=== PATIENT | male | born 1965 | race Asian ===

== ENCOUNTER 2017-02-26 07:47 | Emergency (ER) | payer BC ==
[2017-02-26 09:43] VITALS: BP 124/66
--- NOTE | 2017-02-26 18:47 | ED ---
Asif Lopez Angela, scribed for Julito Be MD on 02/26/17 at 0758 . Lower Extremity - HPI Summary HPI Summary: This pt is a 51 y/o male [facility] c/o bleeding from his left lower leg today. Pt reports that he woke up this morning to go to the bathroom when he noticed bleeding from a wound in his left leg. Pt states "the blood was shooting out in a straight line." He notes that surgicel type of dressing was placed on his leg and pressure was applied to stop the bleeding. Currently his bleeding is controlled. There are no aggravating factors. Pt denies any pain. He notes losing a lot of weight recently and is recovering from a back injury for the past 7 years. - History of Current Complaint Chief Complaint: EDExtremityLower Stated Complaint: LEG WOUND Time Seen by Provider: 02/26/17 07:50 Hx Obtained From: Patient Mechanism Of Injury: Other - none Onset/Duration: Hours Pain Intensity: 0 - no pain Pain Scale Used: 0-10 Numeric Timing: Lasting Minutes Location: Is Discrete @ - left lower leg Associated Signs And Symptoms: Negative: Swelling, Redness, Bruising Aggravating Factor(s): Nothing Alleviating Factor(s): Other - pressure Able to Bear Weight: Yes - Allergies/Home Medications Allergies/Adverse Reactions: Allergies Allergy/AdvReac Type Severity Reaction Status Date / Time No Known Allergies Allergy Verified 02/26/17 07:56 Home Medications: Home Medications Acetaminophen TAB* [Tylenol TAB*] 2 tab PO TID PRN 02/26/17 [History Confirmed 02/26/17] Carisoprodol TAB* [Soma TAB*] 2 tab PO Q4H PRN 02/26/17 [History Confirmed ] PMH/Surg Hx/FS Hx/Imm Hx Endocrine/Hematology History: Denies: Hx Diabetes Cardiovascular History: Denies: Hx Congestive Heart Failure, Hx Hypertension, Hx Pacemaker/ICD Respiratory History: Reports: Hx Sleep Apnea - evaluation for 07/2013 History: Denies: Hx Dialysis, Hx Renal Disease Musculoskeletal History: Reports: Hx Back Problems - chronic back pain, Hx Orthopedic Injury - fell 4 yrs ago onto back (Dr. Merrill), Other Musculoskeletal History - morbid obesity Sensory History: Reports: Hx Contacts or Glasses Denies: Hx Hearing Aid Opthamlomology History: Reports: Hx Contacts or Glasses Neurological History: Denies: Other Neuro Impairments/Disorders - DENIES Psychiatric History: Reports: Hx Depression - meds Denies: Hx Panic Disorder - Surgical History Surgery Procedure, Year, and Place: [place] TONSILS REMOVED X 2 CHILD, CYSTS REMOVED FROM NASAL AREA 05/11 Hx Anesthesia Reactions: No Infectious Disease History: No Infectious Disease History: Denies: Traveled Outside the [place] in Last 30 Days - Family History Known Family History: Positive: Diabetes Negative: Cardiac Disease - Social History Alcohol Use: Occasionally Substance Use Type: Reports: None Smoking Status (MU): Former Smoker Review of Systems Negative: Fever, Chills Eyes: Negative ENT: Negative Negative: Arthralgia, Other - pain in LLE Positive: Other - bleeding from left lower leg All Other Systems Reviewed And Are Negative: Yes Physical Exam - Summary Physical Exam Summary: VITAL SIGNS: Reviewed. GENERAL: Patient is an obese male who is lying comfortable in the stretcher. Patient is not in any acute respiratory distress. HEAD AND FACE: No signs of trauma. No ecchymosis, hematomas or skull depressions. No sinus tenderness. EYES: PERRLA, EOMI x 2, No injected conjunctiva, no nystagmus. EARS: Hearing grossly intact. Ear canals and tympanic membranes are within normal limits. MOUTH: Oropharynx within normal limits. NECK: Supple, trachea is midline, no adenopathy, no JVD, no carotid bruit, no c- spine tenderness, neck with full ROM. CHEST: Symmetric, no tenderness at palpation LUNGS: Clear to auscultation bilaterally. No wheezing or crackles. CVS: Regular rate and rhythm, S1 and S2 present, no murmurs or gallops appreciated. ABDOMEN: Soft, non-tender. No signs of distention. No rebound no guarding, and no masses palpated. Bowel sounds are normal. EXTREMITIES: FROM in all major joints, no edema, no cyanosis or clubbing. LLE: arterial bleed which is controlled with hemostasis. NEURO: Alert and oriented x 3. No acute neurological deficits. Speech is normal and follows commands. SKIN: Dry and warm Triage Information Reviewed: Yes Vital Signs On Initial Exam: Initial Vitals Temp Pulse Resp BP Pulse Ox 97.9 F 85 20 128/93 96 02/26/17 07:50 02/26/17 07:50 02/26/17 07:50 02/26/17 07:50 02/26/17 07:50 Vital Signs Reviewed: Yes Diagnostics - Vital Signs Vital Signs Temp Pulse Resp BP Pulse Ox 02/26/17 07:50 97.9 F 85 20 128/93 96 - Laboratory Lab Statement: Any lab studies that have been ordered have been reviewed, and results considered in the medical decision making process. Lower Extremity Course/Dx - Course Assessment/Plan: This pt is a 51 y/o male presenting to [facility] c/o bleeding from his left lower leg today. Pt reports that he woke up this morning to go to the bathroom when he noticed bleeding from a wound in his left leg. Pt states "the blood was shooting out in a straight line." He notes that surgicel type of dressing was placed on his leg and pressure was applied to stop the bleeding. Currently his bleeding is controlled. There are no aggravating factors. Pt denies any pain. He notes losing a lot of weight recently and is recovering from a back injury for the past 7 years. Arterial bleed is contained, there is on active bleeding. Pt is discharged home with follow up from his PCP. Pt is hemodynamically stable, alert and oriented x3. - Diagnoses Differential Diagnosis/HQI/PQRI: Positive: Bursitis, Cellulitis, Sprain, Strain , Tendonitis Provider Diagnoses: arterial bleed Discharge - Discharge Plan Condition: Stable Disposition: HOME Forms: *Work Release Referrals: Irineo Martines MD [Primary Care Provider] - Additional Instructions: Please follow up with your primary care provider. RETURN TO THE ED FOR ANY NEW OR WORSENING SYMPTOMS. The documentation as recorded by the Asif coronel Angela accurately reflects the service I personally performed and the decisions made by me, Julito Be MD.
== END 2017-02-26 09:42 | disposition home or self-care (01) ==
LOC: ED 07:47
DX: S81.802A Unspecified open wound, left lower leg, initial encounter (principal); X58.XXXA Exposure to other specified factors, initial encounter; Y93.9 Activity, unspecified; Y92.9 Unspecified place or not applicable; Z87.891 Personal history of nicotine dependence
CPT/HCPCS: 99283

== ENCOUNTER 2019-06-18 13:41 | Emergency (ER) | payer BC, MEDICAID, OTHER ==
--- NOTE | 2019-06-18 14:09 | ED ---
Throat Pain/Nasal Congestion - HPI Summary HPI Summary: Patient is a 53 y/o M presenting to the ED for a chief complaint of dental pain. - History of Current Complaint Chief Complaint: EDDentalPain Time Seen by Provider: 06/18/19 14:06 Hx Obtained From: Patient - Allergies/Home Medications Allergies/Adverse Reactions: Allergies Allergy/AdvReac Type Severity Reaction Status Date / Time No Known Allergies Allergy Verified 06/18/19 13:46 Home Medications: Home Medications Percocet 5/325 TAB* 5 mg PO Q6HR PRN 04/09/12 [History Confirmed 02/26/17] Albuterol Sulfate [Proventil Hfa] 2 puff IN Q4HR PRN 07/29/13 [History Confirmed 02/26/17] Acetaminophen TAB* [Tylenol TAB*] 2 tab PO TID PRN 02/26/17 [History Confirmed 02/26/17] Carisoprodol TAB* [Soma TAB*] 2 tab PO Q4H PRN 02/26/17 [History Confirmed ] PMH/Surg Hx/FS Hx/Imm Hx Previously Healthy: Yes Endocrine/Hematology History: Denies: Hx Diabetes Cardiovascular History: Denies: Hx Congestive Heart Failure, Hx Hypertension, Hx Pacemaker/ICD Respiratory History: Reports: Hx Sleep Apnea - evaluation for 07/2013 History: Denies: Hx Dialysis, Hx Renal Disease Musculoskeletal History: Reports: Hx Back Problems - chronic back pain, Hx Orthopedic Injury - fell 4 yrs ago onto back (Dr. Merrill), Other Musculoskeletal History - morbid obesity Sensory History: Reports: Hx Contacts or Glasses Denies: Hx Hearing Aid Opthamlomology History: Reports: Hx Contacts or Glasses Neurological History: Denies: Other Neuro Impairments/Disorders - DENIES Psychiatric History: Reports: Hx Depression - meds Denies: Hx Panic Disorder - Surgical History Surgery Procedure, Year, and Place: [place] TONSILS REMOVED X 2 CHILD, CYSTS REMOVED FROM NASAL AREA 05/11 Hx Anesthesia Reactions: No Infectious Disease History: No Infectious Disease History: Denies: Traveled Outside the [place] in Last 30 Days - Family History Known Family History: Positive: Diabetes Negative: Cardiac Disease - Social History Alcohol Use: Occasionally Substance Use Type: Reports: None Smoking Status (MU): Former Smoker Review of Systems All Other Systems Reviewed And Are Negative: Yes Physical Exam Triage Information Reviewed: Yes Vital Signs On Initial Exam: Initial Vitals Temp Pulse Resp BP Pulse Ox 97.5 F 83 16 189/108 96 06/18/19 13:43 06/18/19 13:43 06/18/19 13:43 06/18/19 13:43 06/18/19 13:43 Vital Signs Reviewed: Yes Procedures - Sedation Patient Received Moderate/Deep Sedation with Procedure: No Diagnostics - Vital Signs Vital Signs Temp Pulse Resp BP Pulse Ox 06/18/19 13:43 97.5 F 83 16 189/108 96 - Laboratory Lab Statement: Any lab studies that have been ordered have been reviewed, and results considered in the medical decision making process. Discharge ED - Discharge Plan Referrals: Darron ANDERSON,Honorio Zepeda [Primary Care Provider] - - Attestation Statements Document Initiated by Scribe: Yes Documenting Scribe: Lupe Busch
[2019-06-18] MEDS ORDERED: traMADol TAB* 50 MG PO ONE (15:15)
[2019-06-18 15:29] VITALS: BP 189/90
--- NOTE | 2019-06-19 06:37 | ED ---
Throat Pain/Nasal Congestion - HPI Summary HPI Summary: This patient is a 53-year-old obese male presenting to the ED with chief complaint of dental pain. He is endorsing pain just behind the front teeth, #8 and 9. He states he feels he got a piece of a popcorn kernel stuck to this area last week and since then he has been having pain. After a few days, he thinks the area may have drained somewhat improved, however now the area is very sore and tender and he is noticing slightly loosening of the 2 front teeth. He has been denying any fevers, sweats, chills. He currently does not have a PCP or a dentist. Denies any difficulty with chewing or swallowing. - History of Current Complaint Chief Complaint: EDDentalPain Time Seen by Provider: 06/18/19 14:06 Hx Obtained From: Patient Onset/Duration: Sudden Onset Severity: Severe Associated Signs And Symptoms: Positive: Negative - Epiglottits Risk Factors Epiglottis Risk Factors: Negative - Allergies/Home Medications Allergies/Adverse Reactions: Allergies Allergy/AdvReac Type Severity Reaction Status Date / Time No Known Allergies Allergy Verified 06/18/19 13:46 Home Medications: Home Medications Percocet 5/325 TAB* 5 mg PO Q6HR PRN 04/09/12 [History Confirmed 02/26/17] Albuterol Sulfate [Proventil Hfa] 2 puff IN Q4HR PRN 07/29/13 [History Confirmed 02/26/17] Acetaminophen TAB* [Tylenol TAB*] 2 tab PO TID PRN 02/26/17 [History Confirmed 02/26/17] Carisoprodol TAB* [Soma TAB*] 2 tab PO Q4H PRN 02/26/17 [History Confirmed ] Penicillin VK 500 MG TAB(NF) [Penicillin VK 500 mg Tab(NF)] 500 mg PO TID #21 tab MDD 3 06/18/19 [Rx] traMADol TAB* [Ultram*] 50 mg PO Q8H PRN #12 tab MDD 3 06/18/19 [Rx] PMH/Surg Hx/FS Hx/Imm Hx Previously Healthy: Yes Endocrine/Hematology History: Denies: Hx Diabetes Cardiovascular History: Denies: Hx Congestive Heart Failure, Hx Hypertension, Hx Pacemaker/ICD Respiratory History: Reports: Hx Sleep Apnea - evaluation for 07/2013 History: Denies: Hx Dialysis, Hx Renal Disease Musculoskeletal History: Reports: Hx Back Problems - chronic back pain, Hx Orthopedic Injury - fell 4 yrs ago onto back (Dr. Merrill), Other Musculoskeletal History - morbid obesity Sensory History: Reports: Hx Contacts or Glasses Opthamlomology History: Reports: Hx Contacts or Glasses Neurological History: Denies: Other Neuro Impairments/Disorders - DENIES Psychiatric History: Reports: Hx Depression - meds Denies: Hx Panic Disorder - Surgical History Surgery Procedure, Year, and Place: [place] TONSILS REMOVED X 2 CHILD, CYSTS REMOVED FROM NASAL AREA 05/11 Hx Anesthesia Reactions: No - Immunization History Hx Pertussis Vaccination: No Immunizations Up to Date: Yes Infectious Disease History: No Infectious Disease History: Denies: Traveled Outside the [place] in Last 30 Days - Family History Known Family History: Positive: Diabetes Negative: Cardiac Disease - Social History Occupation: Unemployed Lives: Alone Alcohol Use: Occasionally Hx Substance Use: No Substance Use Type: Reports: None Smoking Status (MU): Former Smoker Review of Systems Negative: Fever, Chills, Fatigue, Skin Diaphoresis Positive: Dental Pain - pain behind the front teeth Negative: Palpitations, Chest Pain Negative: Shortness Of Breath, Cough Negative: Arthralgia, Myalgia Skin: Negative Neurological/Mental Status: Negative All Other Systems Reviewed And Are Negative: Yes Physical Exam Triage Information Reviewed: Yes Vital Signs On Initial Exam: Initial Vitals Temp Pulse Resp BP Pulse Ox 97.5 F 83 16 189/108 96 06/18/19 13:43 06/18/19 13:43 06/18/19 13:43 06/18/19 13:43 06/18/19 13:43 Vital Signs Reviewed: Yes Appearance: Positive: Well-Appearing, Well-Nourished Skin: Positive: Warm, Skin Color Reflects Adequate Perfusion Head/Face: Positive: Normal Head/Face Inspection Eyes: Positive: EOMI, JUAN LUIS, Conjunctiva Clear Neck: Positive: Supple, No Lymphadenopathy Respiratory/Lung Sounds: Positive: Clear to Auscultation Cardiovascular: Positive: RRR, Pulses are Symmetrical in both Upper and Lower Extremities Musculoskeletal: Positive: Normal, Strength/ROM Intact Neurological: Positive: Speech Normal Psychiatric: Positive: Normal, Affect/Mood Appropriate Procedures - Sedation Patient Received Moderate/Deep Sedation with Procedure: No Diagnostics - Vital Signs Vital Signs Temp Pulse Resp BP Pulse Ox 06/18/19 15:25 97.5 F 83 16 189/90 96 06/18/19 13:43 97.5 F 83 16 189/108 96 - Laboratory Lab Statement: Any lab studies that have been ordered have been reviewed, and results considered in the medical decision making process. EENT Course/Dx - Course Course Of Treatment: Physical exam reveals a slight swelling just behind the front teeth where obvious FB was trapped. Appears to be a small ulcer with no evidence of current abscess. No FB present. Area seems to be healing, however there is erythema and sweling with loosening of the front teeth (mild). Endorses 10/10 pain. Denies fevers, sweats, chills. Discussed findings with pt. Will f/u with dentist LARRY and is given antibiotic and pain control. - Differential Diagnoses Differential Diagnoses: Other - abscess, infection, loosening of teeth - Diagnoses Provider Diagnoses: Hard palate ulcer Discharge ED - Sign-Out/Discharge Documenting (check all that apply): Patient Departure - Discharge Plan Condition: Stable Disposition: HOME Prescriptions: Penicillin VK 500 MG TAB(NF) [Penicillin VK 500 mg Tab(NF)] 500 mg PO TID #21 tab MDD 3 traMADol TAB* [Ultram*] 50 mg PO Q8H PRN #12 tab MDD 3 PRN Reason: Pain Patient Education Materials: Acute Dental Trauma (ED) Referrals: Darron ANDERSON,Honorio Zepeda [Medical Doctor] - Additional Instructions: Please follow up with dentist as soon as possible Ibuprofen 600mg four times daily Tylenol 650mg four times daily Tramadol 50mg three times daily for pain not well controlled with tylenol and ibuprofen Salt water rinses Over the counter ambesol - Billing Disposition and Condition Condition: STABLE Disposition: Home Images - Images Dental: 1 - area of swelling with erythema - no FB present - Attestation Statements Provider Attestation: I was available for consultation for this patient. I did not evaluate the patient or participate in any medical decision making or disposition decisions unless I am specifically named in the chart as having consulted on the patient. If I have consulted on the patient, please see my own ED note on the patient encounter. Evelyn Carlson MD
== END 2019-06-18 15:28 | disposition home or self-care (01) ==
LOC: ED 13:41
DX: K13.70 Unspecified lesions of oral mucosa (principal); F32.9 Major depressive disorder, single episode, unspecified; Z87.891 Personal history of nicotine dependence
CPT/HCPCS: 99282; A9270-GY